=== PATIENT | female | born 1995 | race Caucasian/White ===

== ENCOUNTER 2022-06-11 09:12 | Inpatient (IN) | payer BC ==
[2022-06-11] VITALS (46 sets, daily range): BP systolic 84–155; BP diastolic 51–78; PULSE 51–96; TEMP 97.5–98.9
[~2022-06-11] VITALS: Ht 157.5 cm; Wt 63.6 kg
--- NOTE | 2022-06-11 09:00 | NUR ---
0830- Pt arrives on unit ambulatory with spouse, complaints of SROM at 0630 this morning. States fluid was clear. Oriented to room, into bathroom to change into gown and void. 0834- Pt into bed. EFM and TOCO on and tracing well. VSS. O2 sat monitor on and tracing maternal HR. Assessments completed. 08- Amniotrace inconclusive. SVE by this RN, /-2, small amount of thin, pink/light red fluid noted when head lifted off cervix. Pt and spouse updated on findings and POC, questions answered.
[~2022-06-11 09:12] MED LIST: NATURAL IRON65 MG; PRENATAL TABLET PO
[2022-06-11 09:48] LABS: HEMATOCRIT 38.2 % (37.0-47.0); HEMOGLOBIN 13.1 g/dl (12.5-16.0); MEAN CELL VOLUME 91 fl (80.0-100.0); MEAN CORPUSCULAR HEMOGLOBIN 31 pg (27-31); MEAN CORPUSCULAR HGB CONC 34 g/dl (33.0-37.0); MEAN PLATELET VOLUME 9.4 fl (7.4-10.4); PLATELET COUNT 250 K/mm3 (130-400); REDCELL DISTRIBUTION WIDTH-CV 12.9 % (11.5-14.5)
--- NOTE | 2022-06-11 10:00 | NUR ---
0940- Portillo and PB provided per MD approval. Consent forms explained and signed. 0958- EFM and TOCO off. Pt up to ambulate in hallway.
[2022-06-11 10:07] LABS: BAND 2 % (0-10); LYMPHOCYTE 22 % (20.0-51.0); NEUTROPHILS 72 % (42.0-75.2)
[2022-06-11 10:08] LABS: PLATELET ESTIMATE NORMAL (NORMAL)
--- NOTE | 2022-06-11 10:45 | NUR ---
1033- Pt returns to bed, EFM and TOCO on and tracing. VSS. 1040- Pitocin started at 2mu.
--- NOTE | 2022-06-11 14:15 | NUR ---
1335- Pt sitting on BB, waiting for epidural. 1346- Niranjan, CANDLES POURER at bedside. Discusses epidural and questions answered. 1356- Pt assisted to sitting on side of bed for epidural placement. O2 sat monitor on and tracing maternal HR. 1406- Test dose, see anesthesia record. 1411- Pt assisted to semi-fowlers, EFM and TOCO adjusted.
--- NOTE | 2022-06-11 19:05 | NUR ---
URINARY CATH DISCONTINUED, TIP INTACT, PT TOLERATED WELL.
--- NOTE | 2022-06-11 19:38 | NUR ---
[id number] CONTRACTION PATTERN SKETCHY DUE TO MATERNAL MOVEMENT, UNABLE TO DETERMINE CONTRACTION PATTERN, PT DEEP BREATHING THROUGH CONTRACTIONS UNTIL PROVIDER AT BEDSIDE.
--- NOTE | 2022-06-11 19:39 | NUR ---
FOREBAG RUPTURED BY DR WRIGHT, FLUID CLEAR.
--- NOTE | 2022-06-11 21:09 | NUR ---
LUDWIN MIRANDA NOTED, TOLERATES CONTRACTIONS WELL. PUSHING EDU PROVIDED TO PT AND SO.
--- NOTE | 2022-06-11 21:22 | NUR ---
PT REQUEST FOR SHORT VISIT WITH FAMILY PRIOR TO PUSHING, FRESH WATER PROVIDED.
--- NOTE | 2022-06-11 21:28 | NUR ---
1907 BEGINS PUSHING WITH CONTRACTIONS, NURSE AT BEDSIDE CONTINUOUSLY MONITORING FHT.
--- NOTE | 2022-06-11 23:16 | NUR ---
EPIDURAL REMOVED, TIP INTACT. SITE UNREMARKABLE, NO DRAINAGE NOTED. OPEN TO AIR.
--- NOTE | 2022-06-12 00:25 | NUR ---
1916 ASSIST TO RT LAT, PUSHING WITH CONTRACTIONS FOREBAG PARTIAL RUPTURE 192 ASSIST TO SEMI, PUSHING WITH CONTRACTIONS 1929 DR WRIGHT NOTIFIED READY FOR DELIVERY, NURSERY STAFF NOTIFIED OF PENDING DELIVERY NURSE AT BEDSIDE CONTINUOUSLY MONITORING FHT.
--- NOTE | 2022-06-12 00:40 | NUR ---
1930 PITOCIN TURNED OFF, ASSIST TO LEFT LATERAL, 1931 NURSERY STAFF AT BEDSIDE, ASSIST TO RT LATERAL. BREATHING THROUGH CONTRACTIONS, NURSE AT BEDSIDE CONTINUOUSLY MONITORING FHT, FREQUENT ADJUSTMENT OF ULTRASOUND. 193 DR WRIGHT IN ROOM, 1937 BED , LEGS IN STIRRUPS, 1938 RESUMES PUSHING 0 DELIVERY OF VIABLE INFANT. 1941 PLACENTA IS DELIVERED, PP PITOCIN INITIATED.
--- NOTE | 2022-06-12 01:09 | NUR ---
1939 DELIVERY OF VIABLE FEMALE BY DR WRIGHT. CORD IS CLAMPED AND INFANT IS DRIED AND STIMULATED VIGOROUSLY BY NURSING STAFF. LOUD AUDIBLE CRY IS HEARED, NURSING CARES CONTINUE ON MOTHER'S CHEST BY NURSERY STAFF.
--- NOTE | 2022-06-12 01:24 | NUR ---
SITTING UP RIGHT IN BED, NURSING INFANT, NURSERY STAFF AT BEDSIDE TO ASSIST.
--- NOTE | 2022-06-12 01:26 | NUR ---
AMBULATES TO RESTROOM, STANDBY ASSIST. ELOISA CARE AND GOWN CHANGE, PT STABLE, AMBULATES AROUND ROOM INDEPENDENTLY, DENIES CONCERNS.
[2022-06-12 04:50] VITALS: BP 107/69; PULSE 89; TEMP 97.9
[2022-06-12 08:01] VITALS: BP 103/67; PULSE 74; TEMP 97.8
--- NOTE | 2022-06-12 09:22 | NUR ---
Initial visit; Parents thanked Grain Elevator [employer] Starter for offering congratulations and God's blessings for the of their daughter. Grain Elevator Motor Starter thanked family for choosing [facility].
[2022-06-12 14:00] VITALS: BP 104/60; PULSE 80; TEMP 98.2
[2022-06-12 17:00] VITALS: BP 110/68; PULSE 68; TEMP 98
[2022-06-12] MEDS ORDERED: MOTRIN 800800 MG/TAB PO (17:21)
[2022-06-12 20:15] VITALS: BP 97/55; PULSE 79; TEMP 98.1
[2022-06-13 07:45] VITALS: BP 109/76; PULSE 71; TEMP 98.1
--- NOTE | 2022-06-13 11:15 | NUR ---
PT DISCHARGED HOME IN STABLE CONDITION. DISCHARGE EDUCATION EXPLAINED TO PT. PT VERBALIZED UNDERSTANDING. PT AMBULATED OFF UNIT WITH , SPOUSE, AND RN. PT LEFT WITH NO COMPLAINTS.
== END 2022-06-13 11:15 | disposition home or self-care (01) | DRG 807 ==
LOC: LDRO 09:12 → LDR 09:13 → OB 09:13
PROVIDERS: Obstetrics & Gynecology; ADMIT Obstetrics & Gynecology
PROC: 10E0XZZ Delivery of Products of Conception, External Approach (ICD-10-PCS; principal; 2022-06-11)
PROC: 0HQ9XZZ Repair Perineum Skin, External Approach (ICD-10-PCS; 2022-06-11)
DX: O99.824 Streptococcus B carrier state complicating childbirth (principal); Z37.0 Single live birth; Z3A.38 38 weeks gestation of pregnancy; O70.0 First degree perineal laceration during delivery
CPT/HCPCS: J2540; J2590; J7120